=== PATIENT | female | born 1950 | race Caucasian/White ===

== ENCOUNTER → 2024-05-15 | Outpatient (CLI) | payer MEDICARE, SELFPAY ==
--- NOTE | 2024-05-15 13:40 | RAD_ITS ---
PROCEDURE: Fluoroscopic guided Hip Injection DATE: May 15, 2024. INDICATION: Female, 73 years old. Chronic right hip pain. PHYSICIAN: Froylan Mckinley M.D. MEDICATIONS: 80 mg of Kenalog and 3 cc of 0.5% Marcaine. 2% lidocaine administered subcutaneously for local anesthesia. ACCESS SITE: Right hip. NEEDLE: 22-gauge spinal needle. FLUOROSCOPY TIME (if supplied): (0:40) minutes/seconds. One image was obtained. FINDINGS: The risks, benefits, and alternatives to the procedure were explained to the patient. The specific risks of bleeding, infection, and neurovascular injury were detailed and accepted. Witnessed informed consent was obtained. A 22-gauge spinal needle was positioned under radiographic fluoroscopic localization. Approximately 2 cc of Isovue-300 instilled for localization purposes. Medication was then injected. The patient tolerated the procedure well without any immediate complications. RAD/Inj/Asp Brian Jt Should/Hip/Knee IMPRESSION: 1. Successful fluoroscopic guided hip injection. Electronically Signed: Froylan Mckinley MD at 14:46 EST ,
[2024-05-15] MEDS: Lidocaine 2% (5ml sdv) 5 ML VIAL.MPF INFILT (13:55)
[2024-05-15] MEDS: Triamcinolone Acetonide 40 MG/ML Vial 80 MG INTRAARTIC (14:00)
[2024-05-15] MEDS: Bupivacaine 0.5% PF 10 ML VIAL INTRAARTIC (14:00)
== END | disposition home or self-care (01) ==
LOC: RAD 13:12
PROVIDERS: PCP Family Medicine; Referring Provider Orthopaedic Surgery; Visit Provider Orthopaedic Surgery
DX: M16.11 Unilateral primary osteoarthritis, right hip (principal)
CPT/HCPCS: 20610; 77002; Q9967